=== PATIENT | male | born 1995 | race Caucasian/White ===

== ENCOUNTER 2022-06-29 23:01 | Inpatient (IN) | payer BC, MEDICAID, SELFPAY ==
[2022-06-29 23:09] VITALS: BP 138/90; PULSE 87; RESP 16; TEMP 36.3; O2SAT 100
[2022-06-29 23:13] VITALS: BMI 25.7
[2022-06-30] MEDS: hyDROXYzine 25 mg Capsule 50 MG PO (02:05)
[2022-06-30] MEDS: trazodone 50 mg Tablet PO (02:06)
[2022-06-30 06:00] VITALS: RESP 17
[2022-06-30] MEDS: nicotine 2 mg Gum BUCCAL (08:34)
--- NOTE | 2022-06-30 08:52 | P.NPUHP_ITS ---
Providers/Chief Complaint Admitting Physician: Leoncio Hart MD Chief Complaint: hallucinations HPI NPU History of Present Illness Cuong Martinez is a 26 year old male initially presented to the emergency depart ment on 06/27/22 at [facility]. He arrived there with disorganized thinking and bizarre and unusual ideas while testing positive for methamphetamines amphetamine and marijuana. He had been very loud and disruptive and required the use of as needed Geodon while awaiting placement in an inpatient psychiatric facility. The patient was transferred to the neuropsychiatric unit for further evaluation and treatment on 06/29/2022. The patient reports that he has been diagnosed with schizophrenia and reports that he has been without medications. The patient had reported that he had understood that there is a medication that you can take in a shot form to help him with his problems. Per records provided by [place], patient had been confrontational and suspicious of others with reports claiming that he was hearing voices. Patient was a poor historian and was unable to provide any more information. He denied depressed mood he reported no triggers or any particular reason that he was in the emergency department. Past psychiatric history:He reports that he has been hospitalized 2 times but was not specific as to where. Previous medications are unknown. He had reported a history of schizophrenia and previous records indicate a history of schizoaffective disorder and substance use. Outpatient psychiatric history: He reports he has been receiving treatment through [facility] in [facility]. Current medications: None reported Medical history: None: Allergies: Penicillin and Adderall Surgical history none reported Family psychiatric history: Unknown Drug and alcohol history: He states that he has been using methamphetamine and marijuana and Fentanyl on a daily basis for for 4 years. Social history: The patient reports that he lives in [facility] with his paternal uncle and his aunt. He reports that he is unmarried and has no children. He reports that he had dropped out of school at the age of 17. He had reported a turbulent childhood having a history of legal problems and having been placed in foster care. He denied any history of physical emotional or sexual abuse. He reports that he is currently unemployed. He did not graduate from high school or obtain a GED. Meds NPU Home Medications Medication Instructions Recorded Confirmed Last Taken Type No Known Home Medications 06/29/22 06/29/22 Unknown History Allergies Allergy/AdvReac Type Severity Reaction Status Date / Time Penicillins Allergy Severe ALGY-Anaphy Verified 06/29/22 23:20 laxis amphetamine [From Adderall] Allergy ALGY-Anaphy Verified 06/29/22 23:26 laxis dextroamphetamine Allergy ALGY-Anaphy Verified 06/29/22 23:26 [From Adderall] laxis Mental Status Exam MSE Comments: Cuong is a casually dressed disheveled white male who appeared his stated age with poor hygiene and normal gait. There was no evidence of any abnormal involuntary motor movements tics or tremors appreciated. He did appear to have some psychomotor agitation. His speech appeared normal in regards to volume but decreased in rate. His mood was described as okay. His affect appeared blunted and subdued. His thought process was circumstantial and nonspecific with significant derailment noted. His thought content showed evidence of paranoia and some overvalued ideas he minimized any suicidal or homicidal ideation. He was alert and oriented to person and place but not date although he knew the year and the month. His insight appeared impaired his judgment is impaired and his impulse control appeared limited. His attention span was poor as he was highly distractible Vitals/I&O/Wt Last Vital Signs Temp 97.4 F L 06/29/22 23:09 Pulse 87 06/29/22 23:09 Resp 17 06/30/22 06:00 BP 138/90 06/29/22 23:09 Pulse Ox 100 06/29/22 23:09 O2 Del Method 06/29/22 23:13 Weight last 48 hrs Weight 88.451 kg A&P Assessment and plan (1) Psychotic disorder due to psychoactive substance: (2) Schizophrenia: Plan The patient is a 26-year-old white male with a history of polysubstance abuse recently positive for methamphetamine who presents with psychotic symptoms after a transfer from [facility]. The patient would likely benefit from antipsychotic medications to target active psychosis. We will attempt to gather further collateral information. 1.? Patient agreeable to trial of Invega 3mg today with titration to IM Sustenna 2.? Encourage individual, group and milieu therapy 3.? Continue q-15 minute check for safety 4.? Recommend sober living treatment at the highest level of care to which the patient is willing to commit. Involuntary Hold Information 96 Hour Hold: 96 Hour Involuntary Admission: Yes 96 Hour Hold Ending Date: 07/06/22 96 Hour Hold Ending Time: 22:50 Attestations NPU Medical Necessity Statement*: Inpatient hospitalization is medically necessary and the clinically appropriate intervention at this time. We will monitor medications and make changes as indicated. Patient will be in the hospital for over two midnights. Likely length of stay is five to seven days. Coding Level of Care Code New Pt Acute Fruit Canner for Chg Fwd Patient Type New History Problem Focused Exam Problem Focused Medical Decision Making Straight Forward Diagnoses Psychotic disorder due to psychoactive substance F19.959 Schizophrenia F20.9
[2022-06-30 14:00] VITALS: BP 107/64; PULSE 88; RESP 18; TEMP 36.6; O2SAT 95
[2022-06-30] MEDS: paliperidone ER 3 mg Tablet PO (16:01)
[2022-06-30 20:40] VITALS: RESP 18
[2022-07-01 06:00] VITALS: BP 125/93; PULSE 104; RESP 18; TEMP 36.6; O2SAT 97
[2022-07-01] MEDS: nicotine 2 mg Gum BUCCAL (06:50)
[2022-07-01] MEDS: paliperidone ER 3 mg Tablet PO (08:35)
[2022-07-01] MEDS: LORazepam 2 mg Tablet PO (10:23)
[2022-07-01] MEDS: haloperidol 5 mg Tablet PO (10:23)
[2022-07-01] MEDS: diphenhydrAMINE 50 mg Capsule PO (10:23)
--- NOTE | 2022-07-01 10:25 | PC.NURSE ---
PT BECAME AGITATED ON PHONE WITH SIGNIFICANT OTHER, PT CAME TO NURSES STATION ASKING WHO IS THE PERSON WHO IS IN CHARGE, JULIETTE OR YAHIR PT WAS SPEAKING ABOUT HIS AUNT AND SO. WALKED WITH PT AND PT IS STATING NONSENSICAL STATEMENTS ABOUT TIME TRAVELING AND THAT IS WHY HE DOESN'T GET HIS DRIVERS LICENSE, AND NON LINEAR SPEECH. PT GIVEN PO HALDOL, BENADRYL AND ATIVAN FOR AGITATION. PT SPINNING IN HALLS AND PACING. PT CONTRACTS FOR SAFETY WITH THIS NURSE TO COME SPEAK WITH STAFF BEFORE HE LOSES IT AND FUCKS SOMETHING UP
[2022-07-01] MEDS: nicotine 21 mg Patch 1 PATCH TRANSDERMA (10:26)
[2022-07-01 13:41] VITALS: BP 103/62; PULSE 87; RESP 15; TEMP 36.6; O2SAT 96
--- NOTE | 2022-07-01 17:47 | P.NPUPN_ITS ---
Subjective NPU Subjective: Patient's 26-year-old white male with a history of methamphetamine use admitted with psychotic symptoms with disorganized behavior and disorganized thinking. He continued to appear superficial on the milieu as he was engaging in odd behaviors on the unit. He spent most of the afternoon pacing. He stated that he was feeling much better and was ready to return to live with his aunt and uncle. The patient's family members appear to be appropriately concerned about him returning home and his state and had apparently requested that he continue to stay in the hospital. He had shortly afterwards became agitated and required as needed medications as he had a violent verbal outburst. He had required additional Haldol which had appeared to calm him down. He had reported no side effects from his Invega and continued to express interest in taking an intramuscular medication on a monthly basis to avoid having to take capsules or tablets. Mental Status Exam MSE Comments: Cuong is a casually dressed disheveled white male who appeared his stated age with poor hygiene and normal gait. There was no evidence of any abnormal involuntary motor movements tics or tremors appreciated. He continued to show evidence of psychomotor agitation. His speech appeared normal in regards to volume but decreased in rate with some word-finding difficulties. His mood was described as good. His affect appeared blunted and subdued. His thought process was circumstantial and nonspecific with significant derailment noted. His thought content showed evidence of paranoia and some overvalued ideas. He did appear to be responding to internal stimuli. He minimized any suicidal or homicidal ideation. He was alert and oriented to person and place but not date although he knew the year and the month. His insight appeared impaired. His judgment is impaired and his impulse control appeared limited. His attention span was poor. Vitals/I&O/Wt Last Vital Signs Temp 98 F 07/01/22 13:41 Pulse 87 07/01/22 13:41 Resp 15 07/01/22 13:41 BP 103/62 07/01/22 13:41 Pulse Ox 96 07/01/22 13:41 O2 Del Method 07/01/22 06:00 Weight last 48 hrs Weight 88.451 kg A&P Assessment and plan (1) Psychotic disorder due to psychoactive substance: (2) Schizophrenia: Plan The patient is a 26-year-old white male with a history of polysubstance abuse recently positive for methamphetamine who presents with psychotic symptoms after a transfer from [facility]. The patient would likely benefit from antipsychotic medications to target active psychosis. We will attempt to gather further collateral information. 1.? Continue Invega 3mg today with titration to IM Sustenna 2.? Encourage individual, group and milieu therapy 3.? Continue q-15 minute check for safety 4.? Recommend sober living treatment at the highest level of care to which the patient is willing to commit. Involuntary Hold Information 96 Hour Hold: 96 Hour Involuntary Admission: Yes 96 Hour Hold Ending Date: 07/06/22 96 Hour Hold Ending Time: 22:50 Attestations NPU Medical Necessity Statement*: Inpatient hospitalization is medically necessary and the clinically appropriate intervention at this time. We will monitor medications and make changes as indicated. Patient likely length of stay is five to seven days. Coding Level of Care Code Established Pt Acute Substance Abuse Prevention Coordinator for Mike Santos Patient Type Established History Problem Focused Exam Problem Focused Medical Decision Making Straight Forward Diagnoses Psychotic disorder due to psychoactive substance F19.959 Schizophrenia F20.9
[2022-07-02] MEDS: nicotine 2 mg Gum BUCCAL ×3 (04:13→15:13)
[2022-07-02 06:00] VITALS: BP 149/95; PULSE 110; RESP 18; TEMP 36.6; O2SAT 96
[2022-07-02] MEDS: paliperidone ER 3 mg Tablet 6 MG PO (08:20)
[2022-07-02] MEDS: nicotine 21 mg Patch 1 PATCH TRANSDERMA (08:21)
--- NOTE | 2022-07-02 13:28 | P.NPUPN_ITS ---
Subjective NPU Subjective: Patient's 26-year-old white male with a history of methamphetamine use admitted involuntarily with psychotic symptoms with disorganized behavior and disorganized thinking. The patient had continued to engage in unusual behavior on the unit while pacing the hallway. He reported that he was ready to leave soon as his 96 hours were due to tomorrow. The patient had reported that he had not slept well and wished to have something the help him with his sleep. He had endorsed having gone several days in the past without needing sleep while engaging in more risk-taking behaviors. He had reported having many thoughts going on in his head and stated that he was not your average bear . He had reported at times on interview with having special bowman and abilities but did not elaborate. The patient continued to report that he was ready to return to live with his aunt and uncle although it was unclear at this time whether the aunt and uncle were ready to have him return to the home in his current state. Mental Status Exam MSE Comments: Cuong is a casually dressed disheveled white male who appeared his stated age with poor hygiene and normal gait. There was no evidence of any abnormal involuntary motor movements tics or tremors appreciated. He continued to show evidence of psychomotor agitation. His speech appeared normal in regards to volume and rate. His mood was described as good. His affect was incongruent to mood and appeared blunted and subdued. His thought process was nonlinear and appeared at times to derail, His thought content was superficial with significant ideas of reference and grandiose. He did appear to be responding to internal stimuli. He minimized any suicidal or homicidal ideation. He was alert and oriented to person and place but not date although he knew the year and the month. His insight appeared impaired. His judgment is impaired and his impulse control appeared limited. His attention span was impaired. Vitals/I&O/Wt Last Vital Signs Temp 97.9 F 07/02/22 06:00 Pulse 110 H 07/02/22 06:00 Resp 18 07/02/22 06:00 BP 149/95 07/02/22 06:00 Pulse Ox 96 07/02/22 06:00 O2 Del Method 07/02/22 06:00 A&P Assessment and plan (1) Psychotic disorder due to psychoactive substance: (2) Schizophrenia: Plan The patient is a 26-year-old white male with a history of polysubstance abuse recently positive for methamphetamine who presents with psychotic symptoms after a transfer from [facility]. The patient would likely benefit from antipsychotic medications to target active psychosis. We will attempt to gather further collateral information. 1.? Increased Invega to 6mg today with titration to IM Sustenna 2.? Encourage individual, group and milieu therapy 3.? Continue q-15 minute check for safety 4.? Recommend sober living treatment at the highest level of care to which the patient is willing to commit. Involuntary Hold Information 96 Hour Hold: 96 Hour Involuntary Admission: Yes 96 Hour Hold Ending Date: 07/06/22 96 Hour Hold Ending Time: 22:50 Attestations NPU Medical Necessity Statement*: Inpatient hospitalization is medically necessary and the clinically appropriate intervention at this time. We will monitor medications and make changes as indicated. Patient likely length of stay is six to eight days. Coding Level of Care Code Established Pt Acute Supervisor Microfilm Duplicating Unit for Mike Fwmai Patient Type Established History Problem Focused Exam Problem Focused Medical Decision Making Straight Forward Diagnoses Psychotic disorder due to psychoactive substance F19.959 Schizophrenia F20.9
[2022-07-02 14:00] VITALS: BP 125/74; PULSE 95; RESP 17; TEMP 36.7; O2SAT 98
[2022-07-02] MEDS: haloperidol 5 mg Tablet PO (14:33)
[2022-07-02] MEDS: diphenhydrAMINE 50 mg Capsule PO (14:34)
[2022-07-02] MEDS: LORazepam 2 mg Tablet PO (14:34)
[2022-07-02 20:46] VITALS: BP 120/71; PULSE 74; RESP 18; TEMP 36.8; O2SAT 97
[2022-07-03] MEDS: nicotine 2 mg Gum BUCCAL ×2 (05:32→09:06)
[2022-07-03 06:00] VITALS: BP 118/82; PULSE 93; RESP 18; TEMP 36.7; O2SAT 98
[2022-07-03] MEDS: paliperidone ER 3 mg Tablet 6 MG PO (08:15)
[2022-07-03] MEDS: nicotine 21 mg Patch 1 PATCH TRANSDERMA (09:54)
[2022-07-03 14:00] VITALS: BP 116/65; PULSE 98; RESP 18; TEMP 36.5; O2SAT 99
--- NOTE | 2022-07-03 18:20 | P.NPUPN_ITS ---
Subjective NPU Subjective: Patient's 26-year-old white male with a history of methamphetamine use admitted involuntarily with psychotic symptoms with disorganized behavior and disorganized thinking. The patient was compliant on the milieu and appeared less grandiose and bizarre on the unit. He had reported that he wished to get treatment for his problems with his mood. He reported no racing thoughts. Staff notes the patient had been more redirectable. Staff notes the patient had taken his medications and he reported that he was hopeful that he could return to live with his aunt and uncle. There was no increase in agitation noted and the patient had required at only minimal amounts of as needed medication today. Mental Status Exam MSE Comments: Cuong is a casually dressed disheveled white male who appeared his stated age with poor hygiene and normal gait. There was no evidence of any abnormal involuntary motor movements tics or tremors appreciated. He continued to show evidence of psychomotor agitation. His speech appeared normal in regards to volume and rate. His mood was described as good. His affect was incongruent to mood and appeared blunted and subdued. His thought process was more linear today, His thought content showed no evidence of homicidal or suicidal ideation. He was alert and oriented to person and place and time. His insight appeared impaired. His judgment is impaired and his impulse control appeared limited. His attention span was impaired. Vitals/I&O/Wt Last Vital Signs Temp 97.7 F 07/03/22 14:00 Pulse 98 07/03/22 14:00 Resp 18 07/03/22 14:00 BP 116/65 07/03/22 14:00 Pulse Ox 99 07/03/22 14:00 O2 Del Method 07/03/22 06:00 A&P Assessment and plan (1) Psychotic disorder due to psychoactive substance: (2) Schizophrenia: Plan The patient is a 26-year-old white male with a history of polysubstance abuse recently positive for methamphetamine who presents with psychotic symptoms after a transfer from [facility]. The patient would likely benefit from antipsychotic medications to target active psychosis. We will attempt to gather further collateral information. 1.? Continue Invega at 6mg today with titration to IM Sustenna 2.? Encourage individual, group and milieu therapy 3.? Continue q-15 minute check for safety 4.? Recommend sober living treatment at the highest level of care to which the patient is willing to commit. Involuntary Hold Information 96 Hour Hold: 96 Hour Involuntary Admission: Yes 96 Hour Hold Ending Date: 07/06/22 96 Hour Hold Ending Time: 22:50 Attestations NPU Medical Necessity Statement*: Inpatient hospitalization is medically necessary and the clinically appropriate intervention at this time. We will monitor medications and make changes as indicated. Patient likely length of stay is 3-5 days. Coding Level of Care Code Established Pt Acute Examining Chair Assembler for Chg Fwd Patient Type Established History Problem Focused Exam Problem Focused Medical Decision Making Straight Forward Diagnoses Psychotic disorder due to psychoactive substance F19.959 Schizophrenia F20.9
[2022-07-03 20:29] VITALS: BP 106/65; PULSE 108; RESP 16; TEMP 36.4; O2SAT 99
[2022-07-03] MEDS: trazodone 50 mg Tablet PO (21:01)
[2022-07-04] MEDS: nicotine 2 mg Gum BUCCAL ×2 (04:36→06:51)
[2022-07-04] MEDS: paliperidone ER 3 mg Tablet 6 MG PO (08:47)
--- NOTE | 2022-07-04 12:55 | W.PM.NPUDCS ---
Diagnoses at Discharge Discharge Diagnosis (1) Schizoaffective disorder, bipolar type: Status: Acute (2) Psychotic disorder due to psychoactive substance: Status: Acute (3) Schizophrenia: Status: Acute Reason for Visit Reason for Visit: hallucinations Brief History: History of Present Illness Cuong Martinez is a 26 year old male initially presented to the emergency department on 06/27/22? at [facility] He arrived there with disorganized thinking and bizarre and unusual ideas while testing positive for methamphetamines amphetamine and marijuana.? He had been very loud and disruptive and required the use of as needed Geodon while awaiting placement in an inpatient psychiatric facility.? The patient was transferred to the neuropsychiatric unit for further evaluation and treatment on 06/29/2022.? The patient reports that he has been diagnosed with schizophrenia and reports that he has been without medications.? The patient had reported that he had understood that there is a medication that you can take in a shot form to help him with his problems.? Per records provided by [place], patient had been confrontational and suspicious of others with reports claiming that he was hearing voices.? Patient was a poor historian and was unable to provide any more information.? He denied depressed mood he reported no triggers or any particular reason that he was in the emergency department. Past psychiatric history:He reports that he has been hospitalized 2 times but was not specific as to where.? Previous medications are unknown.? He had reported a history of schizophrenia and previous records indicate a history of schizoaffective disorder and substance use. Outpatient psychiatric history: He reports he has been receiving treatment through [facility] in [facility]. Current medications: None reported Medical history: None: Allergies: Penicillin and Adderall Surgical history none reported Family psychiatric history: Unknown Drug and alcohol history: He states that he has been using methamphetamine and marijuana and Fentanyl on a daily basis for for 4 years. Social history: The patient reports that he lives in [facility] with his paternal uncle and his aunt.? He reports that he is unmarried and has no children.? He reports that he had dropped out of school at the age of 17.? He had reported a turbulent childhood having a history of legal problems and having been placed in foster care.? He denied any history of physical emotional or sexual abuse.? He reports that he is currently unemployed.? He did not graduate from high school or obtain a GED. Hospital Course Hospital Course Discharge Summary: The patient initially appeared quite psychotic with overt delusions and continued evidence of overvalued ideas and some grandiosity. He was agreeable to a trial of an antipsychotic and was started on Paliperidone and titrated to 6mg on discharge. During the hospitalization, patient had routine laboratory studies which were within normal limits except for few outliers.? Additionally there was a general medical evaluation which was also within normal limits and revealed no new acute processes. At the time of discharge, lethality was denied and psychosis was resolving.? Mood and anxiety were well managed.? Patient endorsed a plan to avoid all drugs of abuse and follow-up with the aftercare recommendations of the treatment team.? Patient was evaluated and deemed to be absent credible lethality, and had achieved the maximum benefit from an inpatient hospitalization, so was discharged. Involuntary Hold Information 96 Hour Hold: 96 Hour Involuntary Admission: Yes 96 Hour Hold Ending Date: 07/06/22 96 Hour Hold Ending Time: 22:50 Mental Status Exam MSE Comments: Cuong is a casually dressed white male who appeared his stated age with adequate hygiene and normal gait. There was no evidence of any abnormal involuntary motor movements tics or tremors appreciated. There is no evidence of psychomotor agitation or retardation. Answers are generally his speech appeared normal in regards to volume and rate. His mood was described as good. His affect was brighter. , There was no evidence of delusional thinking and less grandiosity was present. He did not appear to be responding to internal stimuli. His thought content showed no evidence of homicidal or suicidal ideation. He was alert and oriented to person and place and time. His insight appeared impaired. His judgment is impaired and his impulse control appeared limited. His attention span was impaired. Discharge Data Vitals: Last Vital Signs Temp 97.6 F 07/03/22 20:29 Pulse 108 H 07/03/22 20:29 Resp 16 07/03/22 20:29 BP 106/65 07/03/22 20:29 Pulse Ox 99 07/03/22 20:29 O2 Del Method 07/03/22 06:00 Discharge Plan Discharge Patient Disposition: Home Condition: Stable Prescriptions: New paliperidone 6 mg tablet extended release 24hr 6 mg PO DAILY 30 Days Qty: 30 1RF Discharge Orders: Discharge Order (Routine); Ordered 07/04/22 Ordered By: Leoncio Hart Referrals: [facility] [Other] - 1-3 days (On Open Access and will need to walk-in for services Monday thru Monday 8am to 4pm) Discharge Diet: Advance as tolerated and Usual diet Discharge Activity: Resume usual activity Patient Instructions: Paliperidone (By mouth), Schizophrenia (DC), Opioid Safety Discharge Attestations NPU Time Spent in Discharge Care*: less than 30 min Specific Discharge Activities: Specific discharge activities: educating patient, discussing with binder caser/social workers/dc planners, documenting/other paperwork and evaluating patient/reviewing data Status at Discharge: Cognitive status at discharge: cognitively intact, Behavioral status at discharge: cooperative, Functional status at discharge: independent ambulation Overall status at discharge: patient is progressing back to baseline Coding Level of Care Code Established Pt Acute Chg FW DC note Patient Type Established History Problem Focused Exam Problem Focused Medical Decision Making Straight Forward Diagnoses Schizoaffective disorder, bipolar type F25.0 Psychotic disorder due to psychoactive substance F19.959 Schizophrenia F20.9
[2022-07-04 13:04] VITALS: BP 106/65; PULSE 108; RESP 16; TEMP 36.4; O2SAT 99
[2022-07-04] MEDS: OLANZapine 5 mg ODT PO (14:11)
[2022-07-04] MEDS: nicotine 21 mg Patch 1 PATCH TRANSDERMA (14:23)
== END 2022-07-04 15:56 | disposition home or self-care (01) | DRG 885 ==
PROVIDERS: Admitting Provider Psychiatry & Neurology Psychiatry; Visit Provider Psychiatry & Neurology Psychiatry
DX: F25.0 Schizoaffective disorder, bipolar type (principal); F19.959 Other psychoactive substance use, unspecified with psychoactive substance-induced psychotic disorder, unspecified; F15.90 Other stimulant use, unspecified, uncomplicated; F12.90 Cannabis use, unspecified, uncomplicated; F11.90 Opioid use, unspecified, uncomplicated; Z91.128 Patient's intentional underdosing of medication regimen for other reason; Z88.0 Allergy status to penicillin; Z88.8 Allergy status to other drugs, medicaments and biological substances
CPT/HCPCS: 97150; 97165; Q0163